=== PATIENT | female | born 1980 | race Caucasian/White ===

== ENCOUNTER 2024-04-08 07:30 | Observation (INO) | payer BC ==
[2024-04-08] MEDS ORDERED: Enoxaparin 40 MG (0.4 mL) SYRINGE ONE (08:21)
[2024-04-08] MEDS ORDERED: Scopolamine 1 mg/72 hour Patch ONE (08:21)
[2024-04-08] MEDS ORDERED: Bupivacaine 0.25% HCL 30 ML VIAL ONE (12:33)
[2024-04-08] MEDS ORDERED: EPINEPHrine 1 MG/ML VIAL ONE (12:33)
[2024-04-08] MEDS ORDERED: Lidocaine 1% PF 5 ML VIAL ONE (12:36)
[2024-04-08] MEDS ORDERED: Ondansetron PF 4 MG/2 ML Vial ONE ×2 (12:36→15:00)
[2024-04-08] MEDS ORDERED: Rocuronium Bromide 10 MG/ML (10ML VIAL) ONE (12:36)
[2024-04-08] MEDS ORDERED: Dexamethasone 4 mg/ml Vial ONE (12:36)
[2024-04-08] MEDS ORDERED: fentaNYL PF 100 MCG/2 ML SYRINGE ONE ×2 (12:36→14:12)
[2024-04-08] MEDS ORDERED: PROPOFOL 20 ML ONE (12:36)
[2024-04-08] MEDS ORDERED: cefOXitin 2 GM VIAL ONE (12:41)
[2024-04-08] MEDS ORDERED: ePHEDrine Sulfate 50 MG/10 ML VIAL ONE (13:27)
[2024-04-08] MEDS ORDERED: SUGAMMADEX SODIUM 200 MG/2 ML VIAL ONE (14:03)
[2024-04-08] MEDS ORDERED: fentaNYL 50 mcg/mL 1 mL Vial ONE ×2 (14:38→15:27)
[2024-04-08] MEDS ORDERED: Dextrose 50% Abboject 50 ML SYRINGE SLOW IVP PRN (15:05)
[2024-04-08] MEDS ORDERED: Ondansetron PF 4 MG/2 ML Vial IVP PRN (15:05)
[2024-04-08] MEDS ORDERED: oxyCODONE 5 MG TAB PO PRN (15:05)
[2024-04-08] MEDS ORDERED: Glucagon 1 MG/ML KIT IM PRN (15:05)
[2024-04-08] MEDS ORDERED: Dextrose 5% in Water 1,000 ML IV PRN (15:05)
[2024-04-08] MEDS ORDERED: Ipratropium/Albuterol 3 ML NEB NEB PRN (15:05)
[2024-04-08] MEDS ORDERED: hydrALAZINE 20 MG/ML VIAL SLOW IVP PRN (15:05)
[2024-04-08] MEDS ORDERED: Promethazine HCl 25 MG/ML VIAL IM PRN (15:05)
[2024-04-08] MEDS ORDERED: traMADol HCl 50 MG TAB PO PRN (15:05)
[2024-04-08] MEDS ORDERED: diphenhydrAMINE 50 MG/ML VIAL IVP PRN (15:05)
[2024-04-08] MEDS ORDERED: Promethazine HCl 25 MG/ML VIAL ONE (15:54)
[2024-04-08] MEDS ORDERED: HYDROmorphone 0.5 MG/0.5 ML SYRINGE ONE (15:56)
[2024-04-08] MEDS ORDERED: Ketorolac Tromethamine 30 MG (1 mL) VIAL ONE (15:58)
[2024-04-08] MEDS ORDERED: D5 1/2 NS w/20 mEq KCL 1,000 ML ONE (15:58)
[2024-04-08] MEDS: Ketorolac Tromethamine 30 MG (1 mL) VIAL IVP SCH (16:03)
[2024-04-08] MEDS ORDERED: hydrALAZINE 20 MG/ML VIAL ONE (16:12)
[2024-04-08] MEDS: D5 1/2 NS w/20 mEq KCL 1,000 ML IV SCH (16:49)
[2024-04-08 17:51] VITALS: BMI 44.8
[2024-04-08] MEDS: Acetaminophen 325 MG (10.15 ML) UDCUP PO SCH (21:58)
[2024-04-08] MEDS: busPIRone HCl 10 MG TAB PO SCH (21:58)
[2024-04-09] MEDS: Enoxaparin 40 MG (0.4 mL) SYRINGE SC SCH (08:22)
[2024-04-09] MEDS: DULoxetine 60 MG CAP PO SCH (08:22)
[2024-04-09] MEDS: Pantoprazole 40 MG VIAL IVP SCH (08:22)
[2024-04-09] MEDS ORDERED: ATOMOXETINE HCL 80 MG PO SCH (09:00)
[2024-04-09] MEDS ORDERED: Pantoprazole DR 40 MG TAB PO SCH (09:00)
[2024-04-09 11:57] VITALS: BP 117/76; TEMP 98.3
== END 2024-04-09 12:35 | disposition home or self-care (01) ==
LOC: SDC 07:30 → EDSTATUS 08:51 → SURG B 16:34
PROVIDERS: ADMIT Surgery; ATTEND Surgery
PROC: 0DB64Z3 Excision of Stomach, Percutaneous Endoscopic Approach, Vertical (ICD-10-PCS; principal; 2024-04-09)
DX: E66.01 Morbid (severe) obesity due to excess calories (principal); I10 Essential (primary) hypertension; K21.9 Gastro-esophageal reflux disease without esophagitis; K44.9 Diaphragmatic hernia without obstruction or gangrene; G47.00 Insomnia, unspecified; G43.909 Migraine, unspecified, not intractable, without status migrainosus; F90.9 Attention-deficit hyperactivity disorder, unspecified type; F32.9 Major depressive disorder, single episode, unspecified; F41.1 Generalized anxiety disorder; F17.290 Nicotine dependence, other tobacco product, uncomplicated; Z68.42 Body mass index [BMI] 45.0-49.9, adult; Z90.49 Acquired absence of other specified parts of digestive tract; Z79.899 Other long term (current) drug therapy
CPT/HCPCS: 88307; J0171; J0360; J0665; J0694; J1100; J1650; J1885; J2405; J2470; J2550; J2704; J3010; J3480; S2900